=== PATIENT | female | born 1995 | race African-American/Black ===

== ENCOUNTER 2017-02-03 10:19 | Emergency (ER) | payer MEDICAID ==
[~2017-02-03] VITALS: Ht 157.5 cm; Wt 61.2 kg
[~2017-02-03 10:19] MED LIST: IBUPROFEN800 MG ORAL; MACROBID100 MG ORAL; NKM
[2017-02-03] MEDS ORDERED: Lidocaine 1% Plain 30 ml INJ ONE (10:45)
[2017-02-03 11:00] VITALS: BP 118/72
[2017-02-03] MEDS ORDERED: CEPHALEXIN500 MG ORAL (11:11)
[2017-02-03] MEDS ORDERED: DOXYCYCLINE MO100 MG ORAL (11:11)
[2017-02-03 11:21] VITALS: BP 106/76
--- NOTE | 2017-02-03 15:00 | Emergency Room Report ---
History of Present Illness General Chief Complaint: Skin Rash/Abscess Source: Patient Present Illness HPI 21-year-old female p/w redness/swelling/bump to right lower abdominal/ suprapubic area for 3 days. pain to the area, denies purulent drainage. No fever or chills. Denies hx of abscesses in the past. Allergies: Coded Allergies: No Known Allergies (Unverified , 03/24/14) Patient History Past Medical History: see triage record Past Surgical History: none Pertinent Family History: none Reviewed Nursing Documentation: PMH: Agreed, PSxH: Agreed Review of Systems All Other Systems: negative except mentioned in HPI Physical Exam Vital Signs Date Time Temp Pulse Resp B/P (MAP) Pulse Ox O2 Delivery O2 Flow Rate FiO2 02/03/17 10:22 97.9 98 20 115/76 100 Room Air Sp02 EP Interpretation: reviewed, normal General Appearance: normal inspection, well appearing, no apparent distress, alert, GCS 15, non-toxic Head: normocephalic, atraumatic Eyes: bilateral eye normal inspection, bilateral eye PERRL, bilateral eye EOMI ENT: normal ENT inspection, normal pharynx, normal voice, moist mucus membranes Neck: normal inspection, full range of motion, supple Respiratory: normal inspection, lungs clear, normal breath sounds, no respiratory distress, no retraction, no wheezing, speaking full sentences, chest symmetrical Cardiovascular #1: normal inspection, regular rate, rhythm, no edema, normal capillary refill Cardiovascular #2: 2+ radial (R), 2+ radial (L) Gastrointestinal: normal inspection, non tender, soft, non-distended, no guarding Musculoskeletal: normal inspection, back normal, normal range of motion, non- tender Neurologic: normal inspection, alert, oriented x3, responsive, motor strength/ tone normal, sensory intact, normal gait, speech normal Psychiatric: normal inspection, judgement/insight normal, memory normal Skin: warm/dry, well hydrated, normal turgor, other - Area of induration, swelling, noted in right-sided suprapubic area, 3 x 3 cm, small wound with purulent drainage Medical Decision Making Diagnostic Impression: Primary Impression: Abscess ER Course 21-year-old female p/w bump/swelling to right suprapubic area DDX: Abscess Plan: Incision and drainage, DC home with ABX ER course: Patient offered incision and drainage area, but was not tolerate, despite adequate anesthesia, refused procedure Disposition: Patient discharged to home with keflex and doxycycline. Patient instructed to follow up in ED or primary care doctor's office to wound recheck in 48 hours without fail. Patient cautioned to return to ED if there is rapid spread of rash, high fever or chills. Patient verbalized understanding and agrees with plan. Please note that this Emergency Department Report was dictated using [employer] custom technology software, occasionally this can lead to erroneous entry secondary to interpretation by the dictation equipment. Last Vital Signs Date Time Temp Pulse Resp B/P (MAP) Pulse Ox O2 Delivery O2 Flow Rate FiO2 02/03/17 11:21 83 18 106/76 99 Room Air 02/03/17 11:00 98.0 Disposition: HOME, SELF-CARE Condition: Stable Scripts Doxycycline Monohydrate* (DOXYCYCLINE MONOHYDRATE*) 100 Mg Capsule 100 MG ORAL Q12H for 7 Days, #14 CAP 0 Refills Prov: Alba Arguelles M.D. 02/03/17 Cephalexin* (KEFLEX*) 500 Mg Capsule 500 MG ORAL EVERY 12 HOURS for 7 Days, #14 CAP 0 Refills Prov: Alba Arguelles M.D. 02/03/17 Referrals: [facility] (PCP) Patient Instructions: Abscess Additional Instructions: FOLLOW UP WITH YOUR DOCTOR IN 2 DAYS FOR WOUND RECHECK Alba Arguelles M.D. Feb 03, 2017 15:00
== END 2017-02-03 11:23 | disposition home or self-care (01) ==
LOC: EMR 10:30
DX: L02.211 Cutaneous abscess of abdominal wall (principal)
CPT/HCPCS: 99284; J2001

== ENCOUNTER 2017-05-24 09:03 | Emergency (ER) | payer MEDICAID ==
[~2017-05-24] VITALS: Ht 160 cm; Wt 69.4 kg
[~2017-05-24 09:03] MED LIST changes: +CEPHALEXIN500 MG ORAL; +DOXYCYCLINE MO100 MG ORAL
[2017-05-24 09:10] VITALS: BP 133/91
[2017-05-24] MEDS ORDERED: IBUPROFEN600 MG ORAL (09:20)
[2017-05-24] MEDS ORDERED: AMOXICILLIN500 MG ORAL (09:20)
[2017-05-24] MEDS ORDERED: ACETAMINOPHEN-1 EAC1 ORAL (09:20)
--- NOTE | 2017-05-24 09:23 | Emergency Room Report ---
History of Present Illness General Chief Complaint: Pain Source: Patient, Medical Record Present Illness HPI Patient presents with complaints of left upper dental pain Patient has had problems in the past however recently has had increased pain Patient tried to see her dentist yesterday but was not able to Pain is 7 out of 10 Now she feels the pain to her left ear and left neck area Denies any fevers or chills Denies any trismus denies any chest pain or shortness of breath Allergies: Coded Allergies: No Known Allergies (Unverified , 03/24/14) Patient History Past Medical History: see triage record Pertinent Family History: none Last Menstrual Period: 05/17/17 Reviewed Nursing Documentation: PMH: Agreed, PSxH: Agreed Nursing Documentation-PMH Past Medical History: No History, Except For Review of Systems All Other Systems: negative except mentioned in HPI Physical Exam Vital Signs Date Time Temp Pulse Resp B/P (MAP) Pulse Ox O2 Delivery O2 Flow Rate FiO2 05/24/17 09:06 98.1 78 18 133/91 97 Room Air 98.1 Sp02 EP Interpretation: reviewed, normal General Appearance: well appearing, no apparent distress Head: normocephalic, atraumatic Eyes: bilateral eye PERRL, bilateral eye EOMI ENT: other - Dental decay left upper back molar region, no obvious external evidence of fluctuance the maxillary area is not swollen, tympanic members are clear Neck: full range of motion, supple, no meningismus Respiratory: lungs clear Musculoskeletal: normal inspection Neurologic: normal inspection, alert, oriented x3, gear setter III-XII nml as tested Skin: normal color, no rash Lymphatic: no adenopathy Medical Decision Making Diagnostic Impression: Primary Impression: dental decay ER Course Patient appears to have pathology related to dental decay possible infection Patient requires urgent dental follow-up She was initiated on antibiotics Requires close reevaluation Last Vital Signs Date Time Temp Pulse Resp B/P (MAP) Pulse Ox O2 Delivery O2 Flow Rate FiO2 05/24/17 09:10 98.1 78 18 133/91 97 Room Air 98.1 Status: unchanged Disposition: HOME, SELF-CARE Condition: Stable Scripts Acetaminophen With Codeine (T#3) (TYLENOL #3 TAB*) Y Tab 1 TAB ORAL Q8H Y for For Pain, #5 TAB Prov: CHAPO LEIVA D.OChauncey 3/9/18 Ibuprofen* (MOTRIN*) 600 Mg Tablet 600 MG ORAL Q8H Y for For Pain, #20 TAB 0 Refills Prov: CHAPO LEIVA D.O. 05/24/17 Amoxicillin* (AMOXIL*) 500 Mg Capsule 500 MG ORAL THREE TIMES A DAY, #30 CAP Prov: CHAPO LEIVA D.O. 05/24/17 Patient Instructions: Dental Abscess, [id number], Dental Caries, [id number] , Dental Pain, [id number] Additional Instructions: Patient is provided with the discharge instructions notified to follow up with primary doctor in the next 2-3 days otherwise return to the er with any worsening symptoms. Please note that this report is being documented using [email or web address] technology. This can lead to erroneous entry secondary to incorrect interpretation by the dictating instrument. CHAPO LEIVA D.O. May 24, 2017 09:23
== END 2017-05-24 09:35 | disposition home or self-care (01) ==
LOC: EMR 09:20
DX: K02.9 Dental caries, unspecified (principal)
CPT/HCPCS: 99284

== ENCOUNTER 2017-05-31 22:29 | Emergency (ER) | payer MEDICAID ==
[~2017-05-31] VITALS: Ht 160 cm; Wt 60.3 kg
[~2017-05-31 22:29] MED LIST changes: +ACETAMINOPHEN-1 EAC1 ORAL; +AMOXICILLIN500 MG ORAL; +IBUPROFEN600 MG ORAL
[2017-05-31 23:00] VITALS: BP 125/84
[2017-05-31 23:43] LABS: APPEARANCE,URINE SLIGHTLY CLOUDY; BILIRUBIN, URINE NEGATIVE (NEGATIVE); GLUCOSE, URINE (UA) NEGATIVE (NEGATIVE); KETONES,URINE NEGATIVE (NEGATIVE); LEUKOCYTE ESTERASE ,URINE 3+ (NEGATIVE); NITRITE,URINE NEGATIVE (NEGATIVE); PH,URINE 5 (4.5-8.0); PROTEIN,URINE NEGATIVE (NEGATIVE); UROBILINOGEN,URINE 1 MG/DL (0.0-1.0)
[2017-05-31 23:44] LABS: COLOR,URINE YELLOW
[2017-06-01 00:40] VITALS: BP 120/82
[2017-06-01] MEDS ORDERED: IBUPROFEN600 MG ORAL (00:41)
--- NOTE | 2017-06-01 00:42 | Emergency Room Report ---
History of Present Illness General Chief Complaint: Abdominal Pain Source: Patient Present Illness HPI Is a 21-year-old female with no cerumen past medical history. She was seen here recently for dental pain and placed on antibiotics and Tylenol with codeine. She presents now with left lower quadrant abdominal pain and fullness. She felt little distended. Also with some constipation. No fever or chills. Onset for last 2 days. Eating and drinking without a problem. No vomiting or diarrhea. Pain is 7 out of 10. Allergies: Coded Allergies: No Known Allergies (Unverified , 03/24/14) Patient History Past Medical History: see triage record, old chart reviewed Past Surgical History: none Pertinent Family History: none Social History: Denies: smoking Now: No Immunizations: other Reviewed Nursing Documentation: PMH: Agreed, PSxH: Agreed Nursing Documentation-PMH Past Medical History: No Stated History Review of Systems Eye: Denies: eye pain, blurred vision ENT: Denies: ear pain, nose congestion, throat swelling Respiratory: Denies: cough, shortness of breath Cardiovascular: Denies: chest pain, palpitations Gastrointestinal: Reports: abdominal pain, Denies: diarrhea, nausea, vomiting Musculoskeletal: Denies: back pain, joint pain Skin: Denies: rash Neurological: Denies: headache, numbness Endocrine: Denies: increased thirst, increased urine Hematologic/Lymphatic: Denies: easy bruising All Other Systems: negative except mentioned in HPI Physical Exam Vital Signs Date Time Temp Pulse Resp B/P (MAP) Pulse Ox O2 Delivery O2 Flow Rate FiO2 05/31/17 22:51 97.9 91 16 128/85 98 Nasal Cannula 97.9 vitals normal Sp02 EP Interpretation: reviewed, normal General Appearance: well appearing, no apparent distress, alert Head: normocephalic, atraumatic Eyes: bilateral eye PERRL, bilateral eye EOMI ENT: hearing grossly normal, normal pharynx Neck: full range of motion, supple, no meningismus Respiratory: chest non-tender, lungs clear, normal breath sounds Cardiovascular #1: regular rate, rhythm, no murmur Gastrointestinal: normal bowel sounds, no mass, no organomegaly, no bruit, non- distended, tenderness - mild left lower quadrant Musculoskeletal: back normal, gait/station normal, normal range of motion Psychiatric: mood/affect normal Skin: warm/dry Medical Decision Making Diagnostic Impression: Primary Impression: Abdominal pain Qualified Codes: R10.32 - Left lower quadrant pain ER Course Patient with abdominal pain. Most likely from constipation and gas. She is a little constipated per history. No evidence of acute abdomen or obstruction. She felt better now. We'll discharge home. CT/MRI/US Diagnostic Results CT/MRI/US Diagnostic Results : Imaging Test Ordered: CT abdomen and pelvis Impression negative per radiologist Last Vital Signs Date Time Temp Pulse Resp B/P (MAP) Pulse Ox O2 Delivery O2 Flow Rate FiO2 05/31/17 23:00 97.8 78 17 125/84 99 Nasal Cannula 97.8 Status: improved Disposition: HOME, SELF-CARE Condition: Stable Scripts Ibuprofen* (MOTRIN*) 600 Mg Tablet 600 MG ORAL THREE TIMES A DAY, #30 TAB 0 Refills Prov: ANASTASIA LILLY M.D. 06/01/17 Referrals: [facility] ([facility]P) Patient Instructions: Abdominal Pain, Adult Additional Instructions: Follow-up with your in 7 days. Follow-up with dentist ANNITA. Return if worse. ANASTASIA LILLY M.D. Jun 01, 2017 00:41
[2017-06-01 00:45] VITALS: BP 120/82
--- NOTE | 2017-06-01 11:57 | Diagnostic Imaging Report ---
Indication: Left lower quadrant abdominal pain Technique: CT of the abdomen and pelvis utilizing automated exposure control without intravenous or oral contrast. CT dose: Total DLP 696.83 mGycm; CTDI vol 13.88 mGy Comparison: None Findings: Please note that evaluation of the abdominal and pelvic viscera is limited without the use of intravenous and oral contrast. Within these limitations, the following observations are made: Mild dependent atelectatic changes are noted in the lung bases. Heart size within normal limits. There is no pericardial effusion. Noncontrast evaluation of the liver, spleen, adrenal glands and pancreas is grossly unremarkable. Kidneys appear symmetric in size. There is no urinary tract stone or hydronephrosis bilaterally. Bladder and uterus are grossly unremarkable. Possible fullness of the right adnexa raising question for right adnexal cysts. There is no evidence of bowel obstruction. No definite evidence of perienteric inflammatory change. There is no free intraperitoneal air. There is no ascites. Visualized appendix is normal. Abdominal aorta is normal in caliber. There is no bulky lymphadenopathy. Sclerotic focus is noted within the left ischium most likely representing a bone island. No acute osseous abnormality is seen. IMPRESSION: Limited exam without intravenous or oral contrast. Within these limitations: * No evidence of acute intra-abdominal pathology. This corresponds with the [facility] preliminary report. The CT scanner at [facility] is accredited by the [place] [employer] and the scans are performed using protocols designed to limit radiation exposure to as low as reasonably achievable to attain images of sufficient resolution adequate for diagnostic evaluation.
== END 2017-06-01 00:45 | disposition home or self-care (01) ==
LOC: EMR 23:00
DX: R10.32 Left lower quadrant pain (principal)
CPT/HCPCS: 74176; 81003; 81025; 99284

== ENCOUNTER 2017-06-06 11:16 | Emergency (ER) | payer MEDICAID ==
[~2017-06-06] VITALS: Ht 160 cm; Wt 66.7 kg
[2017-06-06 11:24] VITALS: BP 106/73
[2017-06-06 12:05] VITALS: BP 106/73
--- NOTE | 2017-06-07 10:42 | Emergency Room Report ---
History of Present Illness General Chief Complaint: General Complaint Source: Patient Present Illness Allergies: Coded Allergies: No Known Allergies (Unverified , 03/24/14) Patient History Last Menstrual Period: 05/16/17 Now: No Nursing Documentation-[facility] Past Medical History: No History, Except For Hx Cardiac Problems: Yes - hypothyroidism Physical Exam Vital Signs Date Time Temp Pulse Resp B/P (MAP) Pulse Ox O2 Delivery O2 Flow Rate FiO2 06/06/17 11:24 98.4 95 16 106/73 95 Room Air 98.4 Medical Decision Making Diagnostic Impression: Primary Impression: cold ER Course patient eloped prior to being seen Last Vital Signs Date Time Temp Pulse Resp B/P (MAP) Pulse Ox O2 Delivery O2 Flow Rate FiO2 06/06/17 12:05 98.4 95 16 106/73 95 Room Air 98.4 Status: unchanged Disposition: LEFT W/OUT BEING SEEN Condition: Unknown [facility]errals: [facility] ([facility]P) Tamika Osorio DO Jun 07, 2017 10:42
== END 2017-06-06 12:30 | disposition left against medical advice (07) ==
LOC: EMR 12:04
DX: R05 Cough (principal); Z53.21 Procedure and treatment not carried out due to patient leaving prior to being seen by health care provider
CPT/HCPCS: 99281

== ENCOUNTER 2017-11-27 18:32 | Emergency (ER) | payer MEDICAID ==
[~2017-11-27] VITALS: Ht 160 cm; Wt 67.1 kg
[2017-11-27 18:58] VITALS: BP 99/66
[2017-11-27] MEDS ORDERED: ACETAMINOPHEN-1 EAC1 ORAL (20:06)
[2017-11-27 20:12] VITALS: BP 99/66
[2017-11-27] MEDS ORDERED: Tylenol #3 tab (300mg/30mg) ORAL ONE (20:15)
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
== END 2017-11-27 20:12 | disposition home or self-care (01) ==
LOC: EMR 19:18
DX: J06.9 Acute upper respiratory infection, unspecified (principal); S19.9XXA Unspecified injury of neck, initial encounter; Y04.2XXA Assault by strike against or bumped into by another person, initial encounter; Y92.9 Unspecified place or not applicable
CPT/HCPCS: 70360; 99283

== ENCOUNTER 2018-04-17 22:25 | Emergency (ER) | payer MEDICAID ==
[~2018-04-17] VITALS: Ht 160 cm; Wt 68.0 kg
[2018-04-17] MEDS ORDERED: METHIMAZOLE5 MG PO (22:35)
--- NOTE | 2018-04-17 22:44 | Emergency Room Report ---
History of Present Illness General Chief Complaint: Abdominal Pain Present Illness HPI Patient is a 22-year-old female presented after increased left upper abdominal pain. She reports having some associated palpitations. Patient states that she has had associated sharp pain which is constant in nature. It is exacerbated by left-sided supine position. She reports having been taking medications for hyperthyroidism. She denies being . She denies any alcohol use. Allergies: Coded Allergies: No Known Allergies (Unverified , 03/24/14) Patient History Past Medical History: see triage record Last Menstrual Period: 03/18/2018 Now: No : 1 Para: 1 Reviewed Nursing Documentation: PMH: Agreed; PSxH: Agreed Nursing Documentation-PMH Hx Cardiac Problems: Yes - hypothyroidism, heart palpitations Review of Systems All Other Systems: negative except mentioned in HPI Physical Exam Vital Signs Date Time Temp Pulse Resp B/P (MAP) Pulse Ox O2 Delivery O2 Flow Rate FiO2 04/17/18 22:31 97.9 80 16 103/70 97 Room Air Sp02 EP Interpretation: reviewed, normal General Appearance: normal inspection, well appearing, no apparent distress, alert, GCS 15 Head: atraumatic ENT: normal ENT inspection, hearing grossly normal, normal voice Neck: normal inspection, full range of motion, supple, no bony tend Respiratory: normal inspection, lungs clear, normal breath sounds, no respiratory distress, no retraction, no wheezing Cardiovascular #1: regular rate, rhythm, no edema Gastrointestinal: normal inspection, normal bowel sounds, non tender, soft, no guarding, no hernia Genitourinary: no CVA tenderness Musculoskeletal: normal inspection, back normal, normal range of motion Neurologic: normal inspection, alert, responsive, speech normal Psychiatric: normal inspection, judgement/insight normal, mood/affect normal Skin: normal inspection, normal color, no rash Medical Decision Making Diagnostic Impression: Primary Impression: Nonspecific abdominal pain ER Course Patient presented for left-sided abdominal pain. Patient had a similar symptoms in the past. Because of complexity of patient's case laboratory testing and imaging studies were ordered. Patient was noted to have CT imaging which was unremarkable. Patient does not appear to be in any acute distress. Some medications were ordered for symptomatic treatment which the patient refused. Patient is alert in the emergency department was stable throughout stay. Laboratory testing was unremarkable. Patient was discharged home. She was advised to follow-up with her primary care physician for recheck. She is advised to continue abstaining from marijuana. Labs Test 04/17/18 22:40 White Blood Count 9.7 K/UL (4.8-10.8) Red Blood Count 3.90 M/UL (4.20-5.40) Hemoglobin 12.1 G/DL (12.0-16.0) Hematocrit 36.4 % (37.0-47.0) Mean Corpuscular Volume 93 FL (80-99) Mean Corpuscular Hemoglobin 31.0 PG (27.0-31.0) Mean Corpuscular Hemoglobin Concent 33.2 G/DL (32.0-36.0) Red Cell Distribution Width 11.8 % (11.6-14.8) Platelet Count 264 K/UL (150-450) Mean Platelet Volume 6.2 FL (6.5-10.1) Neutrophils (%) (Auto) 43.9 % (45.0-75.0) Lymphocytes (%) (Auto) 44.6 % (20.0-45.0) Monocytes (%) (Auto) 6.2 % (1.0-10.0) Eosinophils (%) (Auto) 2.7 % (0.0-3.0) Basophils (%) (Auto) 2.6 % (0.0-2.0) Urine Color Yellow Urine Appearance Clear Urine pH 6 (4.5-8.0) Urine Specific [place] 1.020 (1.005-1.035) Urine Protein Negative (NEGATIVE) Urine Glucose (UA) Negative (NEGATIVE) Urine Ketones Negative (NEGATIVE) Urine Blood Negative (NEGATIVE) Urine Nitrite Negative (NEGATIVE) Urine Bilirubin Negative (NEGATIVE) Urine Urobilinogen 1 MG/DL (0.0-1.0) Urine Leukocyte Esterase 1+ (NEGATIVE) Urine RBC 0-2 /HPF (0 - 2) Urine WBC 0-2 /HPF (0 - 2) Urine Squamous Epithelial Cells Few /LPF (NONE/OCC) Urine Bacteria Few /HPF (NONE) Urine HCG, Qualitative Negative (NEGATIVE) Sodium Level 139 MMOL/L (136-145) Potassium Level 3.6 MMOL/L (3.5-5.1) Chloride Level 109 MMOL/L (98-107) Carbon Dioxide Level 24 MMOL/L (21-32) Anion Gap 6 mmol/L (5-15) Blood Urea Nitrogen 9 mg/dL (7-18) Creatinine 0.7 MG/DL (0.55-1.30) Estimat Glomerular Filtration Rate > 60 mL/min (>60) Glucose Level 98 MG/DL (74-106) Calcium Level 8.1 MG/DL (8.5-10.1) Total Bilirubin 0.4 MG/DL (0.2-1.0) Aspartate Amino Transf (AST/SGOT) 13 U/L (15-37) Alanine Aminotransferase (ALT/SGPT) 15 U/L (12-78) Alkaline Phosphatase 77 U/L (46-116) Total Protein 7.0 G/DL (6.4-8.2) Albumin 3.5 G/DL (3.4-5.0) Globulin 3.5 g/dL Albumin/Globulin Ratio 1.0 (1.0-2.7) Lipase 165 U/L (73-393) Thyroid Stimulating Hormone (TSH) 0.639 uiU/mL (0.358-3.740) EKG Diagnostic Results Rate: normal Rhythm: NSR ST Segments: no acute changes Last Vital Signs Date Time Temp Pulse Resp B/P (MAP) Pulse Ox O2 Delivery O2 Flow Rate FiO2 04/17/18 22:31 97.9 80 16 103/70 97 Room Air Status: improved Disposition: HOME, SELF-CARE Condition: Stable Scripts Dicyclomine Hcl* (DICYCLOMINE HCL*) 10 Mg Capsule 10 MG PO QID, #30 CAP Prov: Kvng Esteban MD 04/18/18 Kvng Esteban MD Apr 17, 2018 22:44
[2018-04-17 23:33] LABS: APPEARANCE,URINE CLEAR; BILIRUBIN, URINE NEGATIVE (NEGATIVE); GLUCOSE, URINE (UA) NEGATIVE (NEGATIVE); KETONES,URINE NEGATIVE (NEGATIVE); LEUKOCYTE ESTERASE ,URINE 1+ (NEGATIVE); NITRITE,URINE NEGATIVE (NEGATIVE); PH,URINE 6 (4.5-8.0); PROTEIN,URINE NEGATIVE (NEGATIVE); UROBILINOGEN,URINE 1 MG/DL (0.0-1.0)
[2018-04-17 23:40] LABS: ANION GAP 6 mmol/L (5-15); BLOOD UREA NITROGEN 9 mg/dL (7-18); CALCIUM 8.1 MG/DL (8.5-10.1); CARBON DIOXIDE 24 MMOL/L (21-32); CHLORIDE 109 MMOL/L (98-107); CREATININE 0.7 MG/DL (0.55-1.30); POTASSIUM 3.6 MMOL/L (3.5-5.1); SODIUM 139 MMOL/L (136-145)
[2018-04-17 23:43] LABS: BASOPHILS % (AUTO) 2.6 % (0.0-2.0); EOSINOPHILS % (AUTO) 2.7 % (0.0-3.0); HEMATOCRIT 36.4 % (37.0-47.0); HEMOGLOBIN 12.1 G/DL (12.0-16.0); LYMPHOCYTES % (AUTO) 44.6 % (20.0-45.0); MEAN CORPUSCULAR VOLUME 93 FL (80-99); MONOCYTES % (AUTO) 6.2 % (1.0-10.0); NEUTROPHILS % (AUTO) 43.9 % (45.0-75.0); PLATELET COUNT 264 K/UL (150-450); RED CELL DISTRIBUTION WIDTH 11.8 % (11.6-14.8); WHITE BLOOD COUNT 9.7 K/UL (4.8-10.8)
[2018-04-17 23:44] LABS: COLOR,URINE YELLOW
[2018-04-17 23:52] LABS: ALANINE AMINOTRANSFERASE 15 U/L (12-78); ALBUMIN 3.5 G/DL (3.4-5.0); ALKALINE PHOSPHATASE 77 U/L (46-116); ASPARTATE AMINO TRANSFERASE 13 U/L (15-37); BILIRUBIN,TOTAL 0.4 MG/DL (0.2-1.0)
[2018-04-18] VITALS: BP 98/61
[2018-04-18] MEDS ORDERED: DICYCLOMINE HCL10 MG PO (01:09)
[2018-04-18 01:15] VITALS: BP 104/58
[2018-04-18 01:30] VITALS: BP 104/58
--- NOTE | 2018-04-18 12:23 | Diagnostic Imaging Report ---
Indication: Shortness of breath Technique: One view of the chest Comparison: none Findings: Lungs and pleural spaces are clear. Heart size is normal Impression: No acute process
== END 2018-04-18 01:30 | disposition home or self-care (01) ==
LOC: EMR 22:50
DX: R10.12 Left upper quadrant pain (principal); R00.2 Palpitations
CPT/HCPCS: 36415; 71045; 80053; 81003; 81025; 83690; 84443; 85025; 99283; J2405